=== PATIENT | male | born 1965 | race Hispanic/Latino ===

== ENCOUNTER 2024-07-06 04:03 | Inpatient (IN) | payer OTHER, SELFPAY ==
[2024-07-06] VITALS (24 sets, daily range): BP systolic 101–155; BP diastolic 53–78; PULSE 77–96; RESP 12–52; TEMP 35.8; O2SAT 91–100; BMI 25.2
--- NOTE | 2024-07-06 08:36 | P.HP_ITS ---
History of Present Illness History of Present Illness Date Patient Seen: 07/06/24 Time Patient Seen: 08:37 Chief complaint: DKA, Sepsis, PNA Narrative: This is a 59 year old male with PMH of DM, polystubstance abuse possibly, HTN who was accepted from another facility ([facility]) for DKA. Patient arrived to [facility] off insulin infusion, he was confused still and not oriented on arrival. I called for further explanation from the ER providers there. They report his gap closed, but then recurred again when taken off the insulin infusion and then was taken off again prior to transport. Imaging showed a possible pneumonia and he was given ceftriaxone and doxycycline. Repeat labs were ordered on arrival which showed leukocytosis of 18.6, sodium of 151 with a gap of 10, bicarb of 23, and glucose of 171. So he was no longer in DKA. His encephalopathy improved with a single dose of narcan. He was started on lantus BID for now. CT head normal, CXR with possible PNA. Sodium was uptrending at OSH ER, Cr was 1.5 but improving. A1c was 13.1% Started on d5w after arrival, once labs were obtained. Patient was unable to provider reliable history on presentation. [facility] Medical History (Updated 07/06/24 @ 14:07 by Dar Mendez DO) Polysubstance use disorder Diabetes Meds Home Medications and Allergies Home Medications Medication Instructions Recorded Confirmed Type aspirin 81 mg tablet,delayed 81 mg PO DAILY 07/06/24 07/06/24 History release atorvastatin 20 mg tablet 20 mg PO DAILY 07/06/24 07/06/24 History empagliflozin 10 mg tablet 10 mg PO DAILY 07/06/24 07/06/24 History (Jardiance) glipizide 5 mg tablet, extended 5 mg PO DAILY 07/06/24 07/06/24 History release 24 hr insulin NPH isoph U-100 human 100 20 unit SUBCUT BID 07/06/24 07/06/24 History unit/mL (3 mL) subcutaneous pen (Humulin N NPH U-100 Insulin KwikPen) lisinopril 5 mg tablet 5 mg PO DAILY 07/06/24 07/06/24 History metformin 1,000 mg tablet 1,000 mg PO BID 07/06/24 07/06/24 History tadalafil 20 mg tablet 10 - 20 mg PO DAILY PRN Sexual 07/06/24 07/06/24 History Activity Allergies Allergy/AdvReac Type Severity Reaction Status Date / Time No Known Drug Allergies Allergy Verified 07/06/24 08:54 Review of Systems Review of Systems Narrative: All other systems unable to be reviewed with the patient given encephalopathy. Exam Vital Signs (past 8 hours): General:?Ill appearing and lethargic HEENT:? Normocephalic, atraumatic, extraocular muscles intact, oral pharynx is clear and mucous membranes are moist. Neck: supple and symmetric, trachea is midline, no cervical adenopathy. Chest:? Normal AP diameter and contour without kyphoscoliosis, no tachypnea, equal chest rise bilaterally. Lungs:?shallow respirations, no obvious wheezing rhonchi or rales. Cardio:?RRR no m/r/g. Abdomen: S NT ND. Musculoskeletal:? Muscle strength and tone are equal within normal limits, no deformity. Extremities: No edema or joint effusions. No cyanosis or clubbing. Skin:? Pale,? Warm to touch,dry and intact without rashes, ulcerations or petechiae.? Objective Labs 07/06/24 08:36 07/06/24 08:36 Assessment & Plan Assessment & Plan narrative: 1. Insulin dependent diabetes with DKA, resolved prior to arrival - continue lantus 15 U BID, normally on NPH 32 and 20 per outside records available. - sliding scale ordered. - okay for diet - DKA now resolved - suspect either patient ran out of medications or did not take reliably. - A1c 13.1% at 2. Acute metabolic vs toxic encephalopathy - unclear if encephalopathic due to possible PNA, DKA, or toxic etiology given improvement after single dose of narcan - consider narcan infusion dependon - if no improvement obtain MRI - continue antibiotics as noted below - ABG was not remarkable for hypercapnea. 3. Community acquired pneumonia, present on admission. - continue ceftriaxone and azithromycin for now. 4. polysubstance use - UDS positive for amphetamines. - reports of possible fentanyl per nursing staff reports, though UDS is negative. 5. Hypernatremia - possibly fluid related as patient was ordered for >4L of IV fluids at OSH, unclear how much he received. Changed to D5w, monitor with repeat BMP q6 for now. Code: Presumed full, unable to designate surrogate decision maker DVT: lovenox I have utilized all available immediate resources to obtain, update, or review the patient's current medications (obtained from outside electronic reconciliation) Dispo: patient admitted under inpatient status to the ICU. Likely dischage home once improved. Additional history obtained via discussions with the ER provider at OSH and overnight tele-hospitalist. These discussions contributed to the creation of the above assessment and plan. I have reviewed patient's presenting documentation, labs, and imaging personally. I spent 50 minutes providing critical care management this patient. This excludes time spent in performing separately billed procedures. Time-Based Coding :: [TOTAL MINUTES] spent with patient and on the chart (including review of chart, obtaining history, exam, reviewing outside data, placing orders, documenting exam and treatment plan, and counseling patient) on [DATE].
[2024-07-06 08:59] LABS: Add Manual Diff / Slide Review NO; Basophils Absolute Auto 100 /uL (0-100); Basophils Percent Auto 0.8 % (0-2); Eosinophils Absolute Auto 100 /uL (0-450); Eosinophils Percent Auto 0.4 % (2-4); Hematocrit 41.1 % (41-53); Hemoglobin 13.6 g/dL (13.5-17.5); Lymphocytes Absolute Auto 1600 /uL (1100-4500); Lymphocytes Percent Auto 8.8 % (25-40); Mean Corpuscular HGB Conc 33.2 % (30-36); Mean Corpuscular Hemoglobin 28.3 PG (26-34); Mean Corpuscular Volume 85.3 fL (80-100); Monocytes Absolute Auto 1600 /uL (0-900); Monocytes Percent Auto 8.3 % (3-14); Neutrophils Absolute Auto 15200 /uL (1500-7000); Neutrophils Percent Auto 81.7 % (50-75); Platelet Count 366 X10^3/uL (150-400); Red Blood Cell Count 4.82 X10^6/uL (4.5-5.9); Red Cell Distribution Width 14.7 % (11.6-14.8); White Blood Cell Count 18.6 X10^3/uL (4.5-11.0)
[2024-07-06] MEDS: ENOXAPARIN 40 MG/0.4 ML SYRINGE SUBCUT (08:59)
[2024-07-06] MEDS: cefTRIAXone 1,000 MG in SODIUM CHLORIDE 0.9% 100 ML 200 MG IV (08:59)
[2024-07-06] MEDS: AZITHROMYCIN 500 MG in DEXTROSE 5% IN WATER 250 ML 250 MG IV (09:01)
[2024-07-06] MEDS: DEXTROSE 5% WATER 500 ML 40 ML IV (09:01)
[2024-07-06 09:14] LABS: BUN Creatinine Ratio 38.1 (6-22); Blood Urea Nitrogen 45 mg/dL (9-20); Calcium 9.5 mg/dL (8.4-10.2); Carbon Dioxide 23 mmol/L (22-32); Chloride 118 mmol/L (98-107); Estimated Glomerular Filt Rate > 60 mL/min (>60); Glucose 171 mg/dL (80-110); HEMOLYSIS < 15 (0-50); Magnesium 2.5 mg/dL (1.6-2.3); Phosphorous 2.7 mg/dL (2.3-3.7); Potassium 4.1 mmol/L (3.4-5.1); Sodium 151 mmol/L (137-145)
[2024-07-06] MEDS: NALOXONE 0.4 MG/ML VIAL 0.2 MG IV ×2 (09:14→13:38)
[2024-07-06] MEDS: INSULIN GLARGINE 100 UNIT/ML 3ML PEN 15 UNIT SUBCUT ×2 (09:37→21:13)
[2024-07-06 10:45] LABS: Allen Test for ABG Passed? Positive; Base Excess ABG -1.5 mmol/L (-2-3); Blood Gas Collection Site Left Radial; HCO3 ABG 23 mmol/L (23-27); Oxygen Saturation ABG 95 % (95-100); PCO2 ABG 34.7 mmHg (35-45); PO2 ABG 75 mmHg (80-100); TCO2 ABG 22 mmol/L (23-27); pH ABG 7.42 (7.35-7.45)
--- NOTE | 2024-07-06 12:04 | CM.DANOTE ---
B DCP Assessment Note pt is a 59yo M direct admit from [place] due to lack of bed availability over there, here for DKA/sepsis/pneumonia. PCP Frandy Perez Payer PW and self pay [employer]LA[employer] reviewed EMR. Limited information available. direct admit, no ED notes. Per FS, pt lives in [facility]. no emergency contact information available. Per provider in morning rounds, pt no longer in DKA, now is hyponatremic. Was given narcan and woke up aggressive. more alert now. 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 Pt remains minimally alert at this time. Due to pt's aggression and irritation, RN and provider anticipate pt has a high likelihood of leaving AMA once more alert. RN advised this CM to hold off on speaking with pt for now due to agitation and mixed alertness. P:medical POC continues to develop. If pt does not leave AMA, CM team will complete comprehensive DCP assessment at soonest available opportunity. ANNIE Ramirez Discharge Planning/Care Management CM Discharge Assessment Start: 07/06/24 12:02 Freq: Status: Active Protocol: Document 07/06/24 12:02 WILLY (Rec: 07/06/24 12:04 [id number]) Discharge Planning Assessment Assigned Visitor Information Assistant ANNIE Leyva Advance Directives? No Referrals Initiated None needed Review Status In Process Please Provide Date Initial DC 07/06/24 Assessment Was Performed Next Review Type Continued Stay Review
[2024-07-06] MEDS: INSULIN LISPRO 100 UNIT/ML 3ML VIAL SUBCUT ×3 (12:28→21:14)
[2024-07-06 12:29] LABS: MRSA (Nasal) PCR DETECTED (Not Detect)
[2024-07-06 15:03] LABS: HEMOLYSIS < 15 (0-50)
[2024-07-06 15:05] LABS: Chloride 114 mmol/L (98-107)
[2024-07-06 15:07] LABS: BUN Creatinine Ratio 39.1 (6-22); Blood Urea Nitrogen 34 mg/dL (9-20); Calcium 9.5 mg/dL (8.4-10.2); Carbon Dioxide 25 mmol/L (22-32); Estimated Glomerular Filt Rate > 60 mL/min (>60); Glucose 179 mg/dL (80-110); Potassium 3.9 mmol/L (3.4-5.1); Sodium 148 mmol/L (137-145)
--- NOTE | 2024-07-06 15:43 | PC.NURSE ---
Pt arrived to ICU rm 228 at approximately 08:15. Rousable to physical stimuli, alert to self and month. Incontinent of bladder, linens and brief changed. Pt unable to answer admission questions, glucose 166. Provider at bedside. New orders received. Pt able to tolerate water, speaking loudly, Give me water, I need water, just give me some water man. Water provided an additional occasion. Pt drank 500mL of water in less than 2 minutes. Pt proceeded to have large unmeasured emesis on self and bed. Bed change provided by this RN and other nursing staff. Pt denies nausea at this time. Pt assisted self up in bed, HOB 50 degrees. Pt with brief moments of apnea, O2 desaturations but quickly recovers. Provider notified. No new orders. Care ongoing.
[2024-07-06] MEDS: SODIUM CHLORIDE 0.9% FLUSH 10 ML IV (21:15)
[2024-07-06 21:41] LABS: BUN Creatinine Ratio 40.5 (6-22); Blood Urea Nitrogen 30 mg/dL (9-20); Calcium 9.4 mg/dL (8.4-10.2); Carbon Dioxide 24 mmol/L (22-32); Chloride 111 mmol/L (98-107); Estimated Glomerular Filt Rate > 60 mL/min (>60); Glucose 198 mg/dL (80-110); HEMOLYSIS < 15 (0-50); Potassium 3.9 mmol/L (3.4-5.1); Sodium 143 mmol/L (137-145)
[2024-07-07] VITALS (7 sets, daily range): BP systolic 119–154; BP diastolic 64–79; PULSE 81–91; RESP 12–20; TEMP 35.8–35.9; O2SAT 91–99
[2024-07-07] MEDS: DEXTROSE 5% WATER 500 ML 75 ML IV (00:46)
[2024-07-07 05:53] LABS: BUN Creatinine Ratio 29.5 (6-22); Blood Urea Nitrogen 23 mg/dL (9-20); Calcium 9.4 mg/dL (8.4-10.2); Carbon Dioxide 26 mmol/L (22-32); Chloride 110 mmol/L (98-107); Estimated Glomerular Filt Rate > 60 mL/min (>60); Glucose 214 mg/dL (80-110); HEMOLYSIS < 15 (0-50); Potassium 3.6 mmol/L (3.4-5.1); Sodium 144 mmol/L (137-145)
[2024-07-07 06:12] LABS: Add Manual Diff / Slide Review NO; Basophils Absolute Auto 100 /uL (0-100); Basophils Percent Auto 1.1 % (0-2); Eosinophils Absolute Auto 100 /uL (0-450); Eosinophils Percent Auto 1.3 % (2-4); Hematocrit 39.4 % (41-53); Hemoglobin 12.8 g/dL (13.5-17.5); Lymphocytes Absolute Auto 1500 /uL (1100-4500); Mean Corpuscular HGB Conc 32.6 % (30-36); Mean Corpuscular Hemoglobin 27.9 PG (26-34); Mean Corpuscular Volume 85.5 fL (80-100); Monocytes Absolute Auto 900 /uL (0-900); Monocytes Percent Auto 7.8 % (3-14); Neutrophils Absolute Auto 8600 /uL (1500-7000); Neutrophils Percent Auto 76.8 % (50-75); Platelet Count 437 X10^3/uL (150-400); Red Blood Cell Count 4.61 X10^6/uL (4.5-5.9); Red Cell Distribution Width 14.6 % (11.6-14.8); White Blood Cell Count 11.2 X10^3/uL (4.5-11.0)
[2024-07-07 06:26] LABS: Appearance Urine UA CLEAR; Bilirubin Urine UA NEGATIVE (NEGATIVE); Color Urine UA YELLOW; Glucose Urine UA 3+ g/dL (Negative); Ketones Urine UA 3+ (NEGATIVE); Leukocyte Esterase Urine UA NEGATIVE (NEGATIVE); Nitrite Urine UA NEGATIVE (Negative); Occult Blood Urine UA NEGATIVE (Negative); Protein Urine UA NEGATIVE (Negative); Specific Gravity Urine UA 1.015 (1.000-1.035); Urobilinogen Urine UA 0.2 E.U./dL (0.2); pH Urine UA 5.5 (4.5-8.0)
[2024-07-07 06:36] LABS: Bacteria Urine None Seen; Culture Indicated Urine Cult Not Indicated; RBC Urine None Seen (0-5/HPF); Squamous Epithelial Cell Urine 0-1 /HPF (0-5/HPF); Urine Volume 10mL (spun); WBC Urine None Seen (0-5/HPF)
[2024-07-07] MEDS: INSULIN LISPRO 100 UNIT/ML 3ML VIAL SUBCUT (07:42)
[2024-07-07] MEDS: AZITHROMYCIN 500 MG in DEXTROSE 5% IN WATER 250 ML 250 MG IV (07:49)
[2024-07-07] MEDS: cefTRIAXone 1,000 MG in SODIUM CHLORIDE 0.9% 100 ML 200 MG IV (07:51)
[2024-07-07] MEDS: INSULIN GLARGINE 100 UNIT/ML 3ML PEN 15 UNIT SUBCUT (09:16)
[2024-07-07] MEDS: ENOXAPARIN 40 MG/0.4 ML SYRINGE SUBCUT (09:17)
[2024-07-07] MEDS: SODIUM CHLORIDE 0.9% FLUSH 10 ML IV (09:17)
--- NOTE | 2024-07-07 09:30 | DI.RAD.S_ITS ---
PROCEDURE: XR CHEST 1V INDICATIONS: fall, left chest pain TECHNIQUE: One view of the chest was acquired. COMPARISON: [facility], , XR CHEST 1 VIEW, 07/05/2024, 23:36. FINDINGS: Surgical changes and devices: None. Lungs and pleura: Low lung volumes. Possible mild left lung base opacity. No pneumothorax or pleural effusion identified. Mediastinum: Borderline enlarged heart, unchanged Bones and chest wall: There are degenerative changes. IMPRESSION: Mild left lung base opacity, possibly atelectasis or early airspace disease versus contusion in the setting of trauma. No pneumothorax identified. Borderline enlarged heart. If there is high concern for occult injury, consider repeat radiography or cross-sectional imaging. Dictated by: Florencio Blanco M.D. on 07/07/2024 at 9:03 Approved by: Florencio Blanco M.D. on 07/07/2024 at 9:05
[2024-07-07] MEDS: TRAMADOL 50 MG TABLET PO (09:45)
--- NOTE | 2024-07-07 10:33 | P.DS_ITS ---
History of Present Illness History of Present Illness Date Patient Seen: 07/07/24 Time Patient Seen: 10:34 Chief complaint: DKA, Sepsis, PNA Narrative: This is a 59 year old male with PMH of DM, polystubstance abuse possibly, HTN who was accepted from another facility ([facility]) for DKA. Patient arrived to [facility] off insulin infusion, he was confused still and not oriented on arrival. I called for further explanation from the ER providers there. They report his gap closed, but then recurred again when taken off the insulin infusion and then was taken off again prior to transport. Imaging showed a possible pneumonia and he was given ceftriaxone and doxycycline. Repeat labs were ordered on arrival which showed leukocytosis of 18.6, sodium of 151 with a gap of 10, bicarb of 23, and glucose of 171. So he was no longer in DKA. His encephalopathy improved with a single dose of narcan. He was started on lantus BID for now. CT head normal, CXR with possible PNA. Sodium was uptrending at OSH ER, Cr was 1.5 but improving. A1c was 13.1% Started on d5w after arrival, once labs were obtained. Patient was unable to provider reliable history on presentation. Discharge Providers Provider Date of admission: 07/06/24 04:03 Discharge Date: 07/07/24 Primary care physician: Neymar Perez MD Consults: 07/07/24 09:31 Consult to Physical Therapy Evaluate & Treat Comment: Physician Instructions: Evaluate and Treat Discharge provider: Dar Mendez DO Summary Hospital Course Discharge Diagnosis: 1. Insulin dependent diabetes with DKA, resolved prior to arrival, A1c 13.1% 2. Acute metabolic vs toxic encephalopathy 3. Community acquired pneumonia, present on admission. 4. polysubstance use 5. Hypernatremia Hospital Course: This is a 59 year old male who presented with presumed DKA to an outside hospital after being accepted for transfer by the overnight tele-hospitalist. He was transferred here for admission to the ICU. He arrived off an insulin infusion, still altered and encephalopathic. Calls to the outside hospital provider state the patient had his gap closed, then re-open again, then close again which is why it was discontinued prior to transport. Nursing staff reported possible access to fentanyl, and his mentation greatly improved with narcan after arrival despite negative opiate result on UDS at outside hospital. He did receive two doses of narcan shortly after admission, but would become quite agitated when given this. He had one episode of emesis as well after narcan. He was not started on narcan infusion as the patient was protecting his airway, hemodynamically stable, and slowly improving with regards to his mentation to avoid further aggression with staffing. He was given lantus insulin after arrival once labs confirmed he was no longer in DKA. He was hypernatremic however with improvement on D5W over the course of his stay. His sugars remained controlled after admission. The day after admission, his mentation was much improved. He was able to shower and ambulate without assistance and was tolerating a diet. He reported that he fell in the shower at home, and had some left rib pain for which another CXR was unremarkable. He had possible pneumonia noted on outside imaging, so was discharged with a course of augmentin and tramadol for his rib pain. No other medication changes are recommended. He reports buying his insulin over the counter at [facility], he was encouraged to establish care with a primary provider. It is not entirely clear if the patient was truly in DKA in retrospect. HHS is also possible but so is a toxic encephalopathy also resulting in his acidosis given lack of improvement with correction of his acidosis and anion gap and rapid improvement with narcan. Time Spent with Patient Time spent: Greater than 30 minutes Exam Vital Signs (past 8 hours): - 07/07/24 03:00 07/07/24 03:00 07/07/24 04:00 Temperature 96.6 F L Pulse Rate 91 H 83 Respiratory Rate 18 16 Blood Pressure 136/73 Pulse Oximetry 97 95 Oxygen Delivery Method Oxygen Flow Rate 0 0 07/07/24 04:00 07/07/24 05:00 07/07/24 05:00 Temperature Pulse Rate 89 Respiratory Rate 16 Blood Pressure 154/70 H 119/67 Pulse Oximetry 97 Oxygen Delivery Method Oxygen Flow Rate 0 07/07/24 05:00 07/07/24 06:00 07/07/24 06:00 Temperature Pulse Rate 86 Respiratory Rate 15 Blood Pressure 141/69 H Pulse Oximetry 91 Oxygen Delivery Method Room Air Oxygen Flow Rate 0 07/07/24 09:00 Temperature Pulse Rate Respiratory Rate Blood Pressure Pulse Oximetry Oxygen Delivery Method Room Air Oxygen Flow Rate Oxygen Delivery Method Room Air Oxygen Flow Rate 0 Narrative Exam Narrative: General:?Chronically ill appearing, no acute distress, able to shower and get to the bathroom. HEENT:? Normocephalic, atraumatic, extraocular muscles intact, oral pharynx is clear and mucous membranes are moist. Neck: supple and symmetric, trachea is midline, no cervical adenopathy. Chest:? Normal AP diameter and contour without kyphoscoliosis, no tachypnea, equal chest rise bilaterally. Lungs:?no obvious wheezing rhonchi or rales. Cardio:?RRR no m/r/g. Abdomen: S NT ND. Musculoskeletal:? Muscle strength and tone are equal within normal limits, no deformity. Extremities: No edema or joint effusions. No cyanosis or clubbing. Skin:? Pale,? Warm to touch,dry and intact without rashes, ulcerations or petechiae.? Objective Labs 07/07/24 04:33 07/07/24 04:33 Labs: Laboratory Results - last 24 hr 07/06/24 07/06/24 07/06/24 08:40 10:39 14:45 WBC RBC Hgb Hct MCV MCH MCHC RDW Plt Count Neut % (Auto) Lymph % (Auto) [place] % (Auto) Eos % (Auto) Baso % (Auto) Neut # (Auto) Lymph # (Auto) [place] # (Auto) Eos # (Auto) Baso # (Auto) ABG Sample Site Left radial ABG pH 7.42 ABG pCO2 34.7 L ABG pO2 75 L ABG HCO3 23 ABG Total CO2 22 L ABG O2 Saturation 95 ABG Base Excess -1.5 Richard Test Positive Sodium 148 H Potassium 3.9 Chloride 114 H Carbon Dioxide 25 BUN 34 H Creatinine 0.87 Estimated GFR > 60 BUN/Creatinine Ratio 39.1 H Glucose 179 H Calcium 9.5 Urine Color Urine Appearance Urine pH Ur Specific [place] Urine Protein Urine Glucose (UA) Urine Ketones Urine Occult Blood Urine Nitrate Urine Bilirubin Urine Urobilinogen Ur Leukocyte Esterase Urine RBC Urine WBC Ur Squamous Epith Cells Urine Bacteria Ur Culture Indicated? Vol Urine Centrifuged Nasal Screen MRSA (PCR) Detected H 07/06/24 07/07/24 07/07/24 21:24 04:33 06:03 WBC 11.2 H RBC 4.61 Hgb 12.8 L Hct 39.4 L MCV 85.5 MCH 27.9 MCHC 32.6 RDW 14.6 Plt Count 437 H Neut % (Auto) 76.8 H Lymph % (Auto) 13.0 L [place] % (Auto) 7.8 Eos % (Auto) 1.3 L Baso % (Auto) 1.1 Neut # (Auto) 8600 H Lymph # (Auto) 1500 [place] # (Auto) 900 Eos # (Auto) 100 Baso # (Auto) 100 ABG Sample Site ABG pH ABG pCO2 ABG pO2 ABG HCO3 ABG Total CO2 ABG O2 Saturation ABG Base Excess Richard Test Sodium 143 144 Potassium 3.9 3.6 Chloride 111 H 110 H Carbon Dioxide 24 26 BUN 30 H 23 H Creatinine 0.74 0.78 Estimated GFR > 60 > 60 BUN/Creatinine Ratio 40.5 H 29.5 H Glucose 198 H 214 H Calcium 9.4 9.4 Urine Color Yellow Urine Appearance Clear Urine pH 5.5 Ur Specific [place] 1.015 Urine Protein Negative Urine Glucose (UA) 3+ H Urine Ketones 3+ H Urine Occult Blood Negative Urine Nitrate Negative Urine Bilirubin Negative Urine Urobilinogen 0.2 Ur Leukocyte Esterase Negative Urine RBC None seen Urine WBC None seen Ur Squamous Epith Cells 0-1 /hpf Urine Bacteria None seen Ur Culture Indicated? Cult not indicated Vol Urine Centrifuged 10ml (spun) Nasal Screen MRSA (PCR) [facility] Medical History (Updated 07/06/24 @ 14:07 by Dar Mendez DO) Polysubstance use disorder Diabetes Discharge Plan Discharge Plan Patient Disposition: Home Provider Discharge Comment: You were admitted to the hospital with DKA, confusion now improved. Complete course of antibiotics at home for possible PNA. No changes to diabetes medications at this time. Please follow up with Primary care provider ideally next week to review hospitalization. Discharge orders & Medications Prescriptions: New tramadol 50 mg Tablet 50 mg PO QID PRN (Reason: Pain, Moderate (4-6)) 7 Days Qty: 20 0RF amoxicillin-pot clavulanate 875-125 mg tablet 1 tab PO BID 5 Days Qty: 10 0RF Continued aspirin 81 mg tablet,delayed release (DR/EC) 81 mg PO DAILY atorvastatin 20 mg tablet 20 mg PO DAILY glipizide 5 mg tablet extended release 24hr 5 mg PO DAILY metformin 1,000 mg tablet 1,000 mg PO BID lisinopril 5 mg tablet 5 mg PO DAILY Humulin N NPH Insulin KwikPen 100 unit/mL (3 mL) insulin pen 20 unit SUBCUT BID Patient Comments: [NO ORIGINAL SIG] Rx Instructions: 32 U in AM, 20 U in PM tadalafil 20 mg tablet 10 - 20 mg PO DAILY PRN (Reason: Sexual Activity) Jardiance 10 mg tablet 10 mg PO DAILY Follow up/Referrals: Neymar Perez MD [Primary Care Provider] - Diet/Activity/Treatments Diet: Diet as Tolerated and Regular Activity: As tolerated Visit Report/Discharge Packet Stand Alone Forms: Patient Portal/API, Stroke Signs & Symptoms Discharge Data Primary Care Provider: Neymar Perez
--- NOTE | 2024-07-07 12:42 | CM.DPNOTE ---
DCP note RESEARCH BIOLOGIST reviewed EMR Per hospitalist in morning rounds, pt cleared to dc home today. could benefit from diabetes resources for nursing home management. RESEARCH BIOLOGIST met with pt in room. provided local diabetes support group information for pt's local area ([place]) appreciative. Deny other CM needs or questions. report transport is on their way to take him home. P: home today with friend to transport. no other CM needs identified at this time. ANNIE Ramirez
== END 2024-07-07 12:05 | disposition home or self-care (01) | DRG 52 ==
PROVIDERS: Internal Medicine; Admitting Provider Internal Medicine; PCP Family Medicine; Referring Provider Internal Medicine; Visit Provider Internal Medicine
DX: G93.41 Metabolic encephalopathy (principal); J18.9 Pneumonia, unspecified organism; E87.0 Hyperosmolality and hypernatremia; E11.9 Type 2 diabetes mellitus without complications; F19.90 Other psychoactive substance use, unspecified, uncomplicated; R07.89 Other chest pain; G92.9 Unspecified toxic encephalopathy; I10 Essential (primary) hypertension; W18.2XXA Fall in (into) shower or empty bathtub, initial encounter; Z79.4 Long term (current) use of insulin; Z79.84 Long term (current) use of oral hypoglycemic drugs
CPT/HCPCS: 36415; 36600; 71045; 80048; 81001; 82805; 82962; 83735; 84100; 85025; 87797; J0696; J1650; J1815; J2310